=== PATIENT | male | born 1975 | race Two or more races ===

== ENCOUNTER 2017-09-25 23:26 | Inpatient (IN) | payer SELFPAY ==
[~2017-09-25] VITALS: Ht 154.9 cm; Wt 49.9 kg
[2017-09-26] MEDS ORDERED: SODIUM CHLORIDE 0.9% 1000ML BAG (SEPSIS BOLUS) IV ONE (00:45)
[2017-09-26 01:21] LABS: EOSINOPHILS % 0.2 % (0.0-5.0); HEMATOCRIT. 38.5 % (42.0-52.0); HEMOGLOBIN. 13.2 g/dL (14.0-18.0); LYMPHOCYTES % 14.5 % (20.0-50.0); MEAN CORPUSCULAR HEMOGLOBIN 35.4 pg (28.0-32.0); MEAN CORPUSCULAR VOLUME 102.8 fL (80.0-94.0); MEAN PLATELET VOLUME 7.3 fl (7.4-10.4); NEUTROPHILS % 79.3 % (40.0-76.0); PLATELET 235 x1000/uL (130-400); RED BLOOD CELL COUNT 3.74 mill/uL (4.7-6.1); RED CELL DISTRIBUTION WIDTH 15.5 % (11.6-14.6)
[2017-09-26 01:31] LABS: INR 1.1; PROTHROMBIN TIME 11.8 sec (9.4-11.6)
[2017-09-26 01:54] LABS: ETHANOL BLOOD 530 mg/dL
[2017-09-26 01:55] LABS: CHLORIDE 104 mEq/L (98-107)
[2017-09-26] MEDS ORDERED: KCL 20MEQ/100ML PREMIX 100 ML IV ONE (02:00)
[2017-09-26 02:54] LABS: *AMPHETAMINES SCREEN URINE NEGATIVE (NEGATIVE)
[2017-09-26 02:55] LABS: *BARBITURATES SCREEN URINE NEGATIVE (NEGATIVE); *BENZODIAZEPINES SCREEN URINE NEGATIVE (NEGATIVE); *COCAINE SCREEN URINE NEGATIVE (NEGATIVE); METHADONE URINE SCREEN NEGATIVE (NEGATIVE); OPIATES URINE SCREEN NEGATIVE (NEGATIVE)
[2017-09-26 02:56] LABS: CANNABINOID URINE SCREEN NEGATIVE (NEGATIVE); PHENCYCLIDINE URINE SCREEN NEGATIVE (NEGATIVE)
[2017-09-26 06:42] VITALS: BP 104/65
[2017-09-26] MEDS ORDERED: ONDANSETRON HCL 4MG/2ML VIAL IV PRN (08:00)
[2017-09-26 08:47] VITALS: BP 111/75
[2017-09-26] MEDS: MULTIVITAMINS,THER W-MINERALS TABLET PO SCH (09:00)
[2017-09-26] MEDS: THIAMINE HCL 100MG TABLET PO SCH (09:00)
[2017-09-26] MEDS: FOLIC ACID 1MG TABLET PO SCH (09:00)
[2017-09-26 12:00] VITALS: BP 118/70
[2017-09-26] MEDS: PANTOPRAZOLE SODIUM 40 MG/VIAL IV SCH (12:16)
[2017-09-26] MEDS: LORAZEPAM 2MG/ML CPJ IV PRN ×3 (12:37→22:09)
[2017-09-26] MEDS: DEXT 5%/0.9% NACL 1,000 ML IV SCH (12:46)
[2017-09-26] MEDS ORDERED: KCL 20MEQ/100ML PREMIX 100 ML IV SCH (13:00)
[2017-09-26 14:24] LABS: AMMONIA 78 uMol/L (<32)
[2017-09-26 16:00] VITALS: BP 112/76
[2017-09-26 20:00] VITALS: BP 114/71
[2017-09-27] VITALS: BP 108/70
[2017-09-27] MEDS: DEXT 5%/0.9% NACL 1,000 ML IV SCH ×2 (02:42→14:28)
[2017-09-27 04:00] VITALS: BP 117/71
[2017-09-27] MEDS: LORAZEPAM 2MG/ML CPJ IV PRN (04:35)
[2017-09-27 08:00] VITALS: BP 110/71
[2017-09-27] MEDS: FOLIC ACID 1MG TABLET PO SCH (08:18)
[2017-09-27] MEDS: PANTOPRAZOLE SODIUM 40 MG/VIAL IV SCH (08:18)
[2017-09-27] MEDS: THIAMINE HCL 100MG TABLET PO SCH (08:18)
[2017-09-27] MEDS: MULTIVITAMINS,THER W-MINERALS TABLET PO SCH (08:18)
[2017-09-27 10:28] LABS: BASOPHILS % 0.9 % (0.0-2.0); EOSINOPHILS % 0.8 % (0.0-5.0); HEMATOCRIT. 34.6 % (42.0-52.0); HEMOGLOBIN. 11.9 g/dL (14.0-18.0); LYMPHOCYTES % 18.1 % (20.0-50.0); MEAN CORPUSCULAR HEMOGLOBIN 35.3 pg (28.0-32.0); MEAN CORPUSCULAR VOLUME 102.3 fL (80.0-94.0); MEAN PLATELET VOLUME 8.5 fl (7.4-10.4); MONOCYTES % 7.6 % (2.0-8.0); NEUTROPHILS % 72.6 % (40.0-76.0); PLATELET 170 x1000/uL (130-400); RED BLOOD CELL COUNT 3.38 mill/uL (4.7-6.1); RED CELL DISTRIBUTION WIDTH 15.4 % (11.6-14.6)
[2017-09-27 11:07] LABS: CHLORIDE 99 mEq/L (98-107)
[2017-09-27] MEDS ORDERED: LACTULOSE 20G/30ML UDC PO NR (11:15)
[2017-09-27 12:00] VITALS: BP 106/70
[2017-09-27] MEDS ORDERED: POTASSIUM CHLORIDE 20MEQ TABLET SR PO NR (12:30)
[2017-09-27 16:00] VITALS: BP 110/79
[2017-09-27 18:14] VITALS: BP 110/79
[2017-09-28] MEDS ORDERED: FAMOTIDINE 20MG TABLET PO SCH (09:00)
== END 2017-09-27 18:36 | disposition home or self-care (01) | DRG 279 ==
LOC: ER 23:26 → 6EST 09-26 03:45 → ENRESERV 09-26 04:10 → 6EST 09-26 05:00
PROVIDERS: ADMIT Hospitalist; ATTEND Hospitalist
DX: K72.90 Hepatic failure, unspecified without coma (principal); G92 Toxic encephalopathy; F10.129 Alcohol abuse with intoxication, unspecified
CPT/HCPCS: 36415; 70450; 71045; 80048; 80053; 80305; 82140; 83605; 83690; 83880; 84484; 85025; 85610; 93005; C9113; G0482; J2060; J2405; J3480; J7030; J7040; J7042